=== PATIENT | male | born 1950 | race Caucasian/White ===

== ENCOUNTER → 2024-07-05 01:48 | Outpatient (CLI) | payer BC, SELFPAY ==
--- NOTE | 2024-07-05 | DI.NM_ITS ---
APPROVED REPORT Exam: Pharmacologic Patient Location: Out-Patient Room/Bed: Stress Nurse: USHA Delvalle and Maricel Hitchcock RN Ordering Provider:ОЛЬГА COLLAZO, Contact Number: [phone] BMI: 27.40 Baseline Rhythm: Sinus Bradycardia. Indications: Angina Pectoris. Medical History Medical History: Anemia; CKD Stage Two; Type Two Diabetes Mellitus; GERD; Hyperkalemia; Hyperlipidemi a; Hypertension; Former Smoker. Cardiac Medications: Allopurinol; Atorvastatin; Finasteride; Flomax; Metoprolol Succinate; Vitamin B1 2. Allergies: Celecoxib; Fentanyl; Warfarin. Cardiac Risk Factors: Hyperlipidemia; Hypertension; Type Two Diabetes Mellitus; Former Smoker. Previous Cardiac Procedures: None. Pretest Chest Pain Characteristics: None. Pt. states that he started experiencing sternal chest achin ess that radiates out to the left and right sides of his chest approximately two weeks ago. Pt. state s that it is usually constant and gets worse with exertion. Pt. denied any chest pain/pressure prior to starting the stress test though. Exercise History: Indeterminate. Physical Disabilities: Left knee pain. Lung Sounds: Clear bilaterally throughout, anterior and posterior. Heart Sounds: S1 and S2 auscultated. Stress Test Details Test: Pharmacologic stress was paired with low level exercise. Reason for pharmacologic stress test: physical limitation. Nuclear Acquisition: Rest Tc-99m/Stress Tc-99m 1 day Rest Isotope: Tc-99m Sestamibi. Dose: 10.0 Date: 07/05/2024 Injection Time: 0845 Stress Isotope: Tc-99m Sestamibi. Dose: 30.0 Date: 07/05/2024 Injection Time: 1020 HR Resting HR Supine: 59 bpm Max Heart Rate (APMHR): 147.203274 bpm Resting HR Standin bpm Target HR (85% APMHR): 124.082893 bpm Max HR Achieved: 104 bpm % of APMHR: 70.75 Recovery HR: 72 bpm BP Resting BP Supine: 148/94 mmHg Resting BP Standin/88 mmHg Max BP: 152/84 mmHg Recovery BP: 130/88 mmHg ECG Resting ECG: Sinus Bradycardia. Ectopy: None. Stress ECG: Sinus Tachycardia. ST Change: Nondiagnostic low heart rate. Arrhythmia: None. Recovery ECG: Sinus Rhytm. Recovery ST Change: Nondiagnostic low heart rate. Recovery Arrhythmia: None. Clinical Angina Score: None Rate Pressure Product: [id number] Stress ECG Conclusion 1. Resting electrocardiogram was normal 2. Patient underwent testing using pharmacologic stress with regadenoson 3. Peak heart rate achieved was 71% of predicted for age 4. The electrocardiographic portion of the test was nondiagnostic 5. See MPI report Stress Test Summary STAGE HR BP SpO2 Symptoms NOTES Supine 59 148/94 95 Standing 65 128/88 95 1 min post Lexiscan injection 103 152/84 95 3 min post Lexiscan injection 78 150/90 96 6 min post Lexiscan injection 72 130/88 96 Pt. states that he started experiencing sternal chest achiness that radiates out to the left and righ t sides of his chest approximately two weeks ago. Pt. states that it is usually constant and gets wor se with exertion. Pt. denied any chest pain/pressure prior to starting the stress test though. Pt. wa s conversing pleasantly with nursing staff upon leaving the Stress Lab. Pt. left ambulatory in no devi arent distress. MPI Conclusion Myocardial perfusion is normal. There is no ischemia or evidence of prior infarction Ejection fraction is 76% with normal wall motion Radiologist Interpretation Radiologist agrees with [facility] Operator's Interpretation. Radiologist Interpretation by: Gilson Schumacher MD Interpretation Date/Time: 07/05/2024 18:39:41
[2024-07-05] MEDS: Regadenoson 0.4 MG/5 ML SYR IVP (10:19)
== END ==
PROVIDERS: Visit Provider Family Medicine
DX: I20.9 Angina pectoris, unspecified (principal); I10 Essential (primary) hypertension
CPT/HCPCS: 78452; 93017; J2785

== ENCOUNTER 2025-05-17 14:50 | Outpatient (CLI) | payer BC, SELFPAY ==
[2025-05-17 14:57] LABS: Abs Immature Grans 0.02 10^3/uL (0.0-0.06); Absolute Basophil Count 0.02 10^3/uL (0.0-0.2); Absolute Eosinophil Count 0.08 10^3/uL (0.0-0.7); Absolute Lymphocyte Count 1.03 10^3/uL (1.2-3.4); Absolute Monocyte Count 0.55 10^3/uL (0.1-0.8); Absolute Neutrophil Count 4.69 10^3/uL (1.2-6.7); Basophils % 0.3 %; Eosinophils % 1.3 %; HCT 36.6 % (40.0-50.0); HGB 11.6 g/dL (13.5-17.5); Immature Grans % 0.3 %; Lymphocytes % 16.1 %; MCH 31.6 pg (27.0-33.0); MCHC 31.7 % (32.0-36.0); MCV 100 fL (80-95); MPV 8.8 fL (8.0-11.0); Monocytes % 8.6 %; Neutrophils % 73.4 %; Platelet Count 155 10^3/uL (130-400); RBC 3.67 10^6/uL (4.36-5.78); RDW 14.9 % (11.8-14.1); WBC 6.39 10^3/uL (4.4-10.8)
[2025-05-17 15:47] LABS: ALT 26 U/L (16-63); AST 18 U/L (15-37); Albumin 3.5 g/dL (3.4-5.0); Alkaline Phosphatase 68 U/L (46-116); Anion Gap 9.4 mmol/L (3-11); BUN 20 mg/dL (7-18); Bilirubin, Total 0.4 mg/dL (0.2-1.0); CO2 26.6 mmol/L (21.0-32.0); CREATININE 1.1 mg/dL (0.70-1.30); Calcium 8.7 mg/dL (8.5-10.1); Chloride 107 mmol/L (98-107); Estimated GFR 70.44 (mL/min/1.73m2); Glucose 102 mg/dL (74-106); Potassium 4.2 mmol/L (3.5-5.1); Sodium 143 mmol/L (136-145); Total Protein 6.5 g/dL (6.4-8.2)
== END 2025-05-17 14:51 | disposition home or self-care (01) ==
PROVIDERS: Visit Provider Psychiatry & Neurology Neurology
DX: C71.9 Malignant neoplasm of brain, unspecified (principal)
CPT/HCPCS: 36415; 80053; 85025

== ENCOUNTER 2025-05-24 14:47 | Outpatient (CLI) | payer BC, SELFPAY ==
[2025-05-24 15:42] LABS: Abs Immature Grans 0.01 10^3/uL (0.0-0.06); Absolute Basophil Count 0.01 10^3/uL (0.0-0.2); Absolute Eosinophil Count 0.23 10^3/uL (0.0-0.7); Absolute Lymphocyte Count 0.96 10^3/uL (1.2-3.4); Absolute Monocyte Count 0.57 10^3/uL (0.1-0.8); Absolute Neutrophil Count 4.18 10^3/uL (1.2-6.7); Basophils % 0.2 %; Eosinophils % 3.9 %; HCT 36.8 % (40.0-50.0); HGB 11.7 g/dL (13.5-17.5); Immature Grans % 0.2 %; Lymphocytes % 16.1 %; MCH 31.4 pg (27.0-33.0); MCHC 31.8 % (32.0-36.0); MCV 99 fL (80-95); MPV 9.2 fL (8.0-11.0); Monocytes % 9.6 %; Platelet Count 172 10^3/uL (130-400); RBC 3.73 10^6/uL (4.36-5.78); RDW 14.6 % (11.8-14.1); RDW-SD 52.9 fL; WBC 5.96 10^3/uL (4.4-10.8)
[2025-05-24 16:05] LABS: ALT 49 U/L (16-63); AST 28 U/L (15-37); Albumin 3.5 g/dL (3.4-5.0); Alkaline Phosphatase 86 U/L (46-116); Anion Gap 6.9 mmol/L (3-11); BUN 21 mg/dL (7-18); Bilirubin, Total 0.4 mg/dL (0.2-1.0); CO2 29.1 mmol/L (21.0-32.0); CREATININE 1.3 mg/dL (0.70-1.30); Calcium 9.2 mg/dL (8.5-10.1); Chloride 103 mmol/L (98-107); Estimated GFR 57.65 (mL/min/1.73m2); Glucose 97 mg/dL (74-106); Potassium 4.4 mmol/L (3.5-5.1); Sodium 139 mmol/L (136-145); Total Protein 6.7 g/dL (6.4-8.2)
[2025-05-25 10:09] LABS: HBs Antibody, Quant <3.1 mIU/mL (See Note); Hep B Surface Ab Negative (See Note); Hepatitis B Core Antibody Negative (Negative); Hepatitis B Surface Antigen Negative (Negative)
== END 2025-05-24 14:48 | disposition home or self-care (01) ==
LOC: LBO 14:48
PROVIDERS: Visit Provider Psychiatry & Neurology Neurology
DX: Z11.59 Encounter for screening for other viral diseases (principal); C71.9 Malignant neoplasm of brain, unspecified
CPT/HCPCS: 36415; 80053; 86704; 86706; 87340; 85025

== ENCOUNTER 2025-05-31 04:19 | Outpatient (CLI) | payer BC, SELFPAY ==
[2025-05-31 14:03] LABS: Abs Immature Grans 0.02 10^3/uL (0.0-0.06); HCT 38.8 % (40.0-50.0); HGB 12.5 g/dL (13.5-17.5); Immature Grans % 0.3 %; MCH 31.5 pg (27.0-33.0); MCHC 32.2 % (32.0-36.0); MCV 98 fL (80-95); MPV 8.7 fL (8.0-11.0); Platelet Count 194 10^3/uL (130-400); RBC 3.97 10^6/uL (4.36-5.78); RDW 14.5 % (11.8-14.1); RDW-SD 52.2 fL; WBC 6.01 10^3/uL (4.4-10.8)
[2025-05-31 15:06] LABS: ALT 33 U/L (16-63); AST 15 U/L (15-37); Albumin 3.7 g/dL (3.4-5.0); Alkaline Phosphatase 90 U/L (46-116); Anion Gap 6.0 mmol/L (3-11); BUN 22 mg/dL (7-18); Bilirubin, Total 0.5 mg/dL (0.2-1.0); CO2 29.0 mmol/L (21.0-32.0); Calcium 9.3 mg/dL (8.5-10.1); Chloride 105 mmol/L (98-107); Estimated GFR 78.98 (mL/min/1.73m2); Glucose 100 mg/dL (74-106); Potassium 4.1 mmol/L (3.5-5.1); Sodium 140 mmol/L (136-145); Total Protein 6.8 g/dL (6.4-8.2)
== END 2025-05-31 04:20 | disposition home or self-care (01) ==
PROVIDERS: Visit Provider Psychiatry & Neurology Neurology
DX: C71.9 Malignant neoplasm of brain, unspecified (principal)
CPT/HCPCS: 36415; 80053; 85025